=== PATIENT | male | born 1950 | race Caucasian/White ===

== ENCOUNTER 2020-07-10 13:51 | Inpatient (IN) | payer OTHER ==
[~2020-07-10] VITALS: Ht 182.9 cm; Wt 103.9 kg
[2020-07-10 14:22] LABS: HEMOGLOBIN 12.6 gm/dl (14.0-17.5); RED BLOOD COUNT 4.19 M/UL (4.20-5.50); WHITE BLOOD COUNT 4.2 K/UL (4.5-11.0)
[2020-07-10 14:54] LABS: BUN/CREATININE RATIO 19 (0-10)
[2020-07-11 04:33] LABS: HEMOGLOBIN 11.5 gm/dl (14.0-17.5); RED BLOOD COUNT 3.94 M/UL (4.20-5.50)
[2020-07-11 04:59] LABS: BUN/CREATININE RATIO 20 (0-10)
[2020-07-11] MEDS ORDERED: DOXYCYCLINE HY100 MG PO (05:57)
[2020-07-11] MEDS ORDERED: WIXELA 500-501 EACH IH (05:59)
[2020-07-11] MEDS ORDERED: COZAAR 50MG TAB50 MG GT (06:05)
[2020-07-11] MEDS ORDERED: MELOXICAM15 MG PO (06:06)
[2020-07-11] MEDS ORDERED: DOXAZOSIN MESYLA4 MG PO (06:06)
[2020-07-11] MEDS ORDERED: METOPROLOL SUCC25 MG PO (06:06)
[2020-07-12 04:26] LABS: ACINETOBACTER BAUMANNII Not Detected (Negative); CANDIDA ALBICANS Not Detected (Negative); CANDIDA KRUSEI Not Detected (Negative); CANDIDA TROPICALIS Not Detected (Negative); ENTEROCOCCUS Not Detected (Negative); ESCHERICHIA COLI Not Detected (Negative); HAEMOPHILUS INFLUENZAE Not Detected (Negative); KLEBSIELLA OXYTOCA Not Detected (Negative); KLEBSIELLA PNEUMONIAE Not Detected (Negative); KPC-CARBAPENEM-RESISTANCE GENE Not Detected (Negative); PROTEUS Not Detected (Negative); PSEUDOMONAS AERUGINOSA Not Detected (Negative); SERRATIA MARCESANS Not Detected (Negative); STAPHYLOCOCCUS AUREUS Not Detected (Negative); STREP AGALACTIAE (GROUP B) Not Detected (Negative); STREP PYOGENES (GROUP A) Not Detected (Negative); STREPTOCOCCUS Not Detected (Negative); mecA (METHICILLIN RESIST GENE Not Detected (Negative); vanA/B (VANCOMYCIN RESIST GENE Not Detected (Negative)
[2020-07-12 04:29] LABS: STAPHYLOCOCCUS DETECTED (Negative)
[2020-07-13 09:26] LABS: BUN/CREATININE RATIO 26 (0-10)
[2020-07-14 04:34] LABS: BUN/CREATININE RATIO 27 (0-10)
[2020-07-14] MEDS ORDERED: DECADRON6 MG PO (10:44)
[2020-07-14] MEDS ORDERED: BACTRIM DS TAB1 EACH PO (10:51)
--- NOTE | 2020-07-14 15:12 | NUR ---
PATIENT'S OXYGEN REMOVED FOR MAJORITY OF THE DAY, DURING AMBULATION AND AT REST. OXYGEN SATURATIONS REMAIN STABLE, ABOVE 90% WITH GOOD PLETH. MD AWARE, MUSICAL ENGINEER AWARE OF NO NEED FOR HOME O2.
== END 2020-07-14 19:00 | disposition home or self-care (01) | DRG 177 ==
LOC: ER1 13:51 → CDU 16:41 → MED SURG 4 16:41
PROVIDERS: ADMIT Internal Medicine
PROC: XW033E5 Introduction of Remdesivir Anti-infective into Peripheral Vein, Percutaneous Approach, New Technology Group 5 (ICD-10-PCS; principal; 2020-07-10)
PROC: XW13325 Transfusion of Convalescent Plasma (Nonautologous) into Peripheral Vein, Percutaneous Approach, New Technology Group 5 (ICD-10-PCS; 2020-07-10)
PROC: 3E0333Z Introduction of Anti-inflammatory into Peripheral Vein, Percutaneous Approach (ICD-10-PCS; 2020-07-10)
PROC: 8E0ZXY6 Isolation (ICD-10-PCS; 2020-07-10)
DX: U07.1 COVID-19 (principal); J96.01 Acute respiratory failure with hypoxia; J12.82 Pneumonia due to coronavirus disease 2019; R78.81 Bacteremia; J44.0 Chronic obstructive pulmonary disease with (acute) lower respiratory infection; I10 Essential (primary) hypertension; J60 Coalworker's pneumoconiosis; Z98.890 Other specified postprocedural states; Z84.89 Family history of other specified conditions
CPT/HCPCS: 0240U; 36415; 36600; 71045; 71046; 80048; 80053; 80202; 82550; 82553; 82803; 83605; 83874; 84484; 85025; 85027; 86900; 86901; 86927; 87040; 87077; 87150; 87186; 93005; 94640; 94664; 94760; 96374; 96375; 99284; J0456; J0696; J1100; J2405; J3370; J7030; J7070